=== PATIENT | male | born 1985 | race African-American/Black ===

== ENCOUNTER 2020-09-06 12:09 | Emergency (ER) | payer MEDICAID ==
[~2020-09-06] VITALS: Ht 185.4 cm; Wt 85.0 kg
[2020-09-06 12:16] VITALS: BP 126/85
[2020-09-06] MEDS ORDERED: DEXAMETHASONE 4 MG TABLET ONE (12:52)
[2020-09-06] MEDS ORDERED: HYDROcodone/APAP 7.5-325MG/15ML UDC ONE (12:52)
[2020-09-06] MEDS ORDERED: HYDROcodone/APAP 7.5-325MG/15ML UDC PO ONE (13:00)
[2020-09-06] MEDS ORDERED: DEXAMETHASONE 4 MG TABLET PO ONE (13:00)
== END 2020-09-06 13:37 | disposition home or self-care (01) ==
LOC: ED 13:03
DX: J06.9 Acute upper respiratory infection, unspecified (principal); Z20.822 Contact with and (suspected) exposure to COVID-19; H65.01 Acute serous otitis media, right ear; J02.8 Acute pharyngitis due to other specified organisms; B97.89 Other viral agents as the cause of diseases classified elsewhere; F17.290 Nicotine dependence, other tobacco product, uncomplicated
CPT/HCPCS: 87081; 87635; 87880; 99283